=== PATIENT | male | born 1965 | race Caucasian/White ===

== ENCOUNTER 2020-01-09 19:26 | Emergency (ER) | payer BC, MEDICAID, OTHER ==
--- NOTE | 2020-01-09 19:48 | EDM.PDOC ---
ED HPI GENERAL MEDICAL PROBLEM - General Chief Complaint: Lower Extremity Injury/Pain Stated Complaint: LEFT FOOT NAIL WENT THRU Time Seen by Provider: 01/09/20 19:46 Source of Information: Reports: Patient History Limitations: Reports: No Limitations - History of Present Illness Onset: Today Location: Reports: Lower Extremity, Left Quality: Reports: Ache Severity: Mild Associated Symptoms: Reports: No Other Symptoms Treatments [facility] CODER: Reports: Cold Therapy Left Foot Pain Score (Numeric/FACES): 3 - Related Data Allergies Allergy/AdvReac Type Severity Reaction Status Date / Time No Known Allergies Allergy Verified 01/09/20 19:41 Home Meds: Home Meds Omeprazole 20 mg PO DAILY 01/09/20 [History] Review of Systems - Review of Systems Review Of Systems: See Below Constitutional: Reports: No Symptoms Eyes: Reports: No Symptoms Respiratory: Reports: No Symptoms Cardiovascular: Reports: No Symptoms Musculoskeletal: Reports: Foot Pain Skin: Reports: No Symptoms Neurological: Reports: No Symptoms ED EXAM, GENERAL - Physical Exam Exam: See Below Exam Limited By: No Limitations General Appearance: Alert, No Apparent Distress Throat/Mouth: Normal Inspection Respiratory/Chest: No Respiratory Distress Extremities: Normal Range of Motion, No Pedal Edema, Other (obvious puncture wound bottom of L foot. No active bleeding. No deformity on palpation of metatarsals.) Psychiatric: Normal Affect, Normal Mood Course - Vital Signs Text/Narrative:: Given Tdap. Foot Xray shows no foreign body or frature as a result of the puncture wound Last Recorded V/S: Last Vital Signs Temp 36.0 C L 01/09/20 19:49 Pulse 76 01/09/20 19:49 Resp 14 01/09/20 19:49 BP 132/88 01/09/20 19:49 Pulse Ox 98 01/09/20 19:49 - Orders/Labs/Meds Orders: Active Orders 24 hr Category Date Time Status Foot Comp Min 3V Lt [CR] Stat Exams 01/09/20 19:53 Taken Departure - Departure Time of Disposition: 20:48 Disposition: Home, Self-Care 01 Condition: Good Clinical Impression: Puncture wound of foot, left - Discharge Information Instructions: Puncture Wound Referrals: PCP,None [Primary Care Provider] - Forms: ED Department Discharge Additional Instructions: Foot Xray shows no foreign body or frature as a result of the puncture wound. Keep wound clean, dry and covered. Rx provided for augmentin Sepsis Event Note (ED) - Focused Exam Vital Signs: Vital Signs Temp Pulse Resp BP Pulse Ox 01/09/20 19:49 36.0 C L 76 14 132/88 98 - My Orders Last 24 Hours: My Active Orders 01/09/20 19:53 Foot Comp Min 3V Lt [CR] Stat - Assessment/Plan Last 24 Hours: My Active Orders 01/09/20 19:53 Foot Comp Min 3V Lt [CR] Stat
[2020-01-09] MEDS ORDERED: Amoxicillin/Clavulanate K 875-125 MG Tab PO ONE (20:55)
[2020-01-09] MEDS ORDERED: Diphtheria,Pertussis(Acell),Tetanus Vaccine 0.5 ML SDV IM ONE (20:55)
--- NOTE | 2020-01-10 09:26 | CR ---
Foot Comp Min 3V Lt CLINICAL HISTORY: Puncture wound FINDINGS: There is no acute fracture or dislocation within the foot. No destructive changes are present. IMPRESSION: No acute bony process. No foreign body seen
== END 2020-01-09 21:12 | disposition home or self-care (01) ==
LOC: JP.ED 19:26
DX: S91.332A Puncture wound without foreign body, left foot, initial encounter (principal); Z23 Encounter for immunization; Z79.899 Other long term (current) drug therapy; W45.0XXA Nail entering through skin, initial encounter
CPT/HCPCS: 73630; 90471; 90715; 99283; A9270